=== PATIENT | male | born 1985 | race Caucasian/White ===

== ENCOUNTER 2020-10-29 21:42 | Emergency (ER) | payer OTHER ==
[~2020-10-29] VITALS: Ht 188 cm; Wt 88.5 kg
[2020-10-29 22:15] VITALS: BP 130/90
[2020-10-29] MEDS ORDERED: SULF1TAB48 PO (22:31)
[2020-10-29] MEDS ORDERED: CEPH750C9 PO (22:31)
--- NOTE | 2020-10-29 22:43 | NUR ---
Patient discharged to home in stable condition. Written and verbal after care instructions given. Patient verbalizes understanding of instruction. Pt ambulatory with a steady gait
== END 2020-10-29 22:44 | disposition home or self-care (01) ==
LOC: ER 21:42
DX: L03.115 Cellulitis of right lower limb (principal)